=== PATIENT | female | born 1955 | race Caucasian/White ===

== ENCOUNTER 2017-03-03 08:06 | Emergency (ER) | payer MEDICARE | END 2017-03-03 09:26 | disposition home or self-care (01) | LOC: D.ER 08:06 | DX: S83.92XA Sprain of unspecified site of left knee, initial encounter (principal); X58.XXXA Exposure to other specified factors, initial encounter; Y93.89 Activity, other specified; Y92.89 Other specified places as the place of occurrence of the external cause; I10 Essential (primary) hypertension ==

== ENCOUNTER 2017-08-06 13:35 | Emergency (ER) | payer MEDICARE | END 2017-08-06 17:48 | disposition home or self-care (01) | LOC: D.ER 13:35 | DX: S96.912A Strain of unspecified muscle and tendon at ankle and foot level, left foot, initial encounter (principal); X58.XXXA Exposure to other specified factors, initial encounter; Y93.89 Activity, other specified; Y92.89 Other specified places as the place of occurrence of the external cause; I10 Essential (primary) hypertension ==

== ENCOUNTER → 2017-10-31 20:22 | Outpatient (CLI) | payer MEDICARE | END | disposition home or self-care (01) | LOC: D.MAMMO 13:15 | DX: Z12.31 Encounter for screening mammogram for malignant neoplasm of breast (principal); Z78.0 Asymptomatic menopausal state ==